=== PATIENT | male | born 1995 | race African-American/Black ===

== ENCOUNTER → 2016-11-16 | Emergency (ER) | payer SELFPAY ==
[~2016-11-16] VITALS: Ht 180.3 cm; Wt 77.1 kg
[~2016-11-16] MED LIST: HYDROMORPHONE INJ 2 MG/ML DISP.SYRIN IM ONE; HYDROMORPHONE INJ 2 MG/ML DISP.SYRIN ONE; ONDANSETRON 4 MG TAB.RAPDIS ONE; ONDANSETRON 4 MG TAB.RAPDIS SL ONE
[2016-11-16 21:21] VITALS: BP 144/97
== END | disposition home or self-care (01) ==
LOC: ER 20:56
DX: G43.909 Migraine, unspecified, not intractable, without status migrainosus (principal)
CPT/HCPCS: A4606; J1170; Q0162; Z7610

== ENCOUNTER 2017-10-17 19:12 | Emergency (ER) | payer MEDICAID ==
[~2017-10-17] VITALS: Ht 180.3 cm; Wt 72.6 kg
[2017-10-17 19:23] VITALS: BP 140/70
== END 2017-10-17 20:16 | disposition home or self-care (01) ==
LOC: ER 19:14
DX: L72.8 Other follicular cysts of the skin and subcutaneous tissue (principal); R22.0 Localized swelling, mass and lump, head; G43.909 Migraine, unspecified, not intractable, without status migrainosus; Z60.2 Problems related to living alone
CPT/HCPCS: A4606; Z7502; Z7610

== ENCOUNTER 2021-12-27 19:41 | Emergency (ER) | payer MEDICAID ==
[~2021-12-27] VITALS: Ht 180.3 cm; Wt 81.6 kg
[2021-12-27 22:49] VITALS: BP 143/82
[2021-12-28] MEDS ORDERED: KETOROLAC TROMETHAMINE INJ 30 MG/ML VIAL IM ONE
[2021-12-28] MEDS ORDERED: GUAIFENESIN/D-METHORPHAN HB 5 ML UDC PO ONE
[2021-12-28] MEDS ORDERED: Paxlovid PO (01:04)
[2021-12-28] MEDS ORDERED: GUAI1TBM19 PO (01:06)
[2021-12-28] MEDS ORDERED: PSEU120T83 PO (01:06)
[2021-12-28] MEDS ORDERED: BENZ-13 PO (01:06)
[2021-12-28] MEDS ORDERED: IBUP-1957 PO (01:06)
--- NOTE | 2021-12-28 01:40 | NUR ---
Patient discharged to home in stable condition. Written and verbal after care instructions given. Patient verbalizes understanding of instruction.Pt ambulatory with a steady gait
== END 2021-12-28 01:40 | disposition home or self-care (01) ==
LOC: ER 19:56
DX: J06.9 Acute upper respiratory infection, unspecified (principal); Z20.822 Contact with and (suspected) exposure to COVID-19; R51.9 Headache, unspecified
CPT/HCPCS: 99283; 87426; 87804; C9803